=== PATIENT | female | born 1995 | race Caucasian/White ===

== ENCOUNTER 2016-05-28 17:20 | Emergency (ER) | payer SELFPAY ==
[~2016-05-28] VITALS: Ht 170.2 cm; Wt 65.8 kg
[~2016-05-28 17:20] MED LIST: CEPH500C3 PO
[2016-05-28 17:24] VITALS: BP 113/74; PULSE 82; RESP 16; TEMP 98.3; O2SAT 100
[2016-05-28] MEDS ORDERED: HYDR-3533 PO (18:51)
[2016-05-28] MEDS ORDERED: MOTR200T4 PO (18:51)
--- NOTE | 2016-05-28 18:51 | PD ---
HPI Chief Complaint: Oral / Dental Pain or Problem Time Seen by Provider: 18:47 Travel History International Travel<30 days: No Contact w/Intl Traveler<30days: No Traveled to known affect area: No History of Present Illness HPI 20-year-old female with no significant past medical issues, presents to the ER today because she states that her left wisdom tooth has been growing in and over the last few days, she is been having increased pain which she rates it a 7 out of 10 in the left mouth. She denies any facial swelling, fevers, or any other symptoms. She has no problems swallowing. She states she has been using ibuprofen for pain. She states that she knows she is supposed to see a dentist but has not had a chance to. Modifying Factors: None Associated Signs & Symptoms: [place] tooth growing in, pain Risk Factors: None PFSH Past Medical History Medical History: Denies Significant Hx Asthma: No Hepatitis: Yes (C) Musculoskeletal: Yes (Scoliosis) Tetanus Vaccination: < 5 Years Influenza Vaccination: No ?: Not LMP: 05/10/16 Past Surgical History Tympanostomy Tube: Yes (BL) Social History Alcohol Use: No Tobacco Use: No Substance Use: No Allergies-Medications (Allergen,Severity, Reaction): Coded Allergies: No Known Allergies (Verified , 05/28/16) Reported Meds & Prescriptions Reported Meds & Active Scripts Active No Active Prescriptions or Reported Medications Review of Systems Except as stated in HPI: all other systems reviewed are Neg Physical Exam Narrative GENERAL: Well-nourished, well-developed young female patient in no acute distress. Awake and oriented 3. SKIN: Focused skin assessment warm/dry. HEAD: Normocephalic. Face is symmetrical. EYES: No scleral icterus. No injection or drainage. NECK: Supple, trachea midline. No JVD or lymphadenopathy. DENTAL: No loose or chipped teeth. No malocclusion. Left upper posterior molar notable, no surrounding erythema or edema. Data Data Last Documented VS Vital Signs Date Time Temp Pulse Resp B/P Pulse Ox O2 Delivery O2 Flow Rate FiO2 05/28/16 17:24 98.3 82 16 113/74 100 MDM Medical Decision Making Medical Screen Exam Complete: Yes Emergency Medical Condition: Yes Medical Record Reviewed: Yes Differential Diagnosis Dental pain with no signs of acute abscess Narrative Course My plan would be to give her symptomatic relief or pain and follow-up to dentist. Return for any worsening in pain or new symptoms as needed. The plan has discussed with the patient and she states understanding. Diagnosis Primary Impression: Pain, dental Med/Other Pt SpecificInfo: Prescription(s) given Scripts Hydrocodone-Acetaminophen (Lortab)5-325 Mg Tab1 Tab PO Q6H PRN (PAIN GREATER THAN 6) #12 TAB Ref 0 Prov:Chetna Francisco MD 05/28/16 Ibuprofen (Motrin Ib)200 Mg [id number] Mg PO Q6H PRN (PAIN SCALE 1 TO 10) #21 TAB Ref 0 Prov:Chetna Francisco MD 05/28/16 Disposition: 01 DISCHARGE HOME Condition: Stable Chetna Francisco MD May 28, 2016 18:51
== END 2016-05-28 19:00 | disposition home or self-care (01) ==
LOC: PHEFT 17:20
DX: K08.89 Other specified disorders of teeth and supporting structures (principal)
CPT/HCPCS: 99282